=== PATIENT | male | born 1960 | race African-American/Black ===

== ENCOUNTER 2020-03-21 21:05 | Inpatient (IN) ==
[2020-03-21] MEDS ORDERED: HYDROmorphone 2 MG/1 ML VIAL IV ONE (23:18)
[2020-03-22] MEDS ORDERED: HYDROmorphone 2 MG/1 ML VIAL IV PRN (00:55)
[2020-03-22] MEDS ORDERED: LORazepam 2 MG/1 ML VIAL IV PRN ×2 (00:55→00:56)
[2020-03-22] MEDS ORDERED: ONDANSETRON 4 MG/2 ML VIAL IV PRN ×2 (00:56→15:00)
[2020-03-22] MEDS ORDERED: DOCUSATE SODIUM 100 MG CAPSULE PO PRN (00:56)
[2020-03-22] MEDS ORDERED: DEXTROSE 50% 25 GM/50 ML VIAL IV PRN (00:56)
[2020-03-22] MEDS ORDERED: ACETAMINOPHEN 325 MG TABLET PO PRN ×2 (00:56→15:00)
[2020-03-22] MEDS ORDERED: hydrALAZINE 20 MG/1 ML VIAL IV PRN (00:56)
[2020-03-22] MEDS ORDERED: GLUCAGON 1 MG VIAL IM PRN (00:56)
[2020-03-22] MEDS ORDERED: PROMETHAZINE INJ 25 MG in SODIUM CHLORIDE 0.9% 50 ML IV PRN (01:13)
[2020-03-22] MEDS ORDERED: THIAMINE INJ 100 MG, FOLIC ACID INJ 1 MG, MULTIVITAMIN INJ 10 ML in SODIUM CHLORIDE 0.9... IV ONE (01:31)
[2020-03-22] MEDS ORDERED: MAGNESIUM SULF RIDER 4 GM in PREMIX 1 EACH IV PRN (01:32)
[2020-03-22] MEDS ORDERED: POTASSIUM CHLORIDE RIDER 10 MEQ in PREMIX 1 EACH IV PRN (01:32)
[2020-03-22] MEDS ORDERED: MAGNESIUM SULF RIDER 2 GM in PREMIX 1 EACH IV PRN (01:32)
[2020-03-22] MEDS ORDERED: NICOTINE 21 MG/24 HR PATCH TRANSDERM PRN (01:32)
[2020-03-22] MEDS: ENOXAPARIN 40 MG/0.4 ML SYRINGE SUBCUT SCH (01:54)
[2020-03-22 06:13] LABS: Basophils % 0.2 % (0.0-0.8); Hematocrit 43.5 VOL% (42.0-52.0); Hemoglobin 14.9 GM/DL (14.0-18.0); Immature Granulocytes % 0.3 %; Immature Granulocytes Absolute 0.03 #; Lymphocytes # 0.7 10*3/uL (1.4-4.0); Lymphocytes % 8.1 % (21.2-54.2); Mean Corpuscular HGB Conc 34.3 GM/DL (32-36); Mean Corpuscular Volume 91.2 FL (87-102); Mean Platelet Volume 9.1 FL (9.6-12.0); Monocytes % 8.9 % (1.7-12.7); Neutrophils % 82.5 % (38.7-73.9); Platelet Count 168 T/CUMM (130-400); Red Blood Count 4.77 MC/CUMM (3.8-5.5); Red Cell Distribution Width 13.8 % (9.3-17.3); White Blood Count 9.2 T/CUMM (4-12)
[2020-03-22 06:54] LABS: Albumin 3.1 G/DL (3.4-5.0); Bilirubin,Total 2.3 MG/DL (0.2-1.0); Calcium 8.1 MG/DL (8.5-10.1); Osmolality,Calculated 270.2 MOS/KG (273-304); Potassium 3.6 MMOL/L (3.5-5.1); Risk Ratio 5.22; Thyroid Stimulating Hormone 1.01 uIU/ml (0.358-3.74); Total Protein 7.6 G/DL (6.4-8.3)
[2020-03-22] MEDS: CETIRIZINE 10 MG TABLET PO SCH (08:43)
[2020-03-22] MEDS: GABAPENTIN 300 MG CAPSULE PO SCH ×2 (08:43→20:12)
[2020-03-22] MEDS: CHOLECALCIFEROL 1,000 UNIT TABLET PO SCH (08:43)
[2020-03-22] MEDS: ASCORBIC ACID 500 MG TABLET PO SCH ×2 (08:43→20:12)
[2020-03-22] MEDS: atenoloL 50 MG TABLET PO SCH (08:43)
[2020-03-22] MEDS: PANTOPRAZOLE 40 MG VIAL IV SCH (08:44)
[2020-03-22] MEDS: ZINC GLUCONATE 50 MG TABLET PO SCH (08:46)
[2020-03-22] MEDS: SODIUM CHLORIDE 0.9% 1,000 ML IV SCH ×2 (09:30→20:12)
[2020-03-22] MEDS ORDERED: methylPREDNISolone SOD SUC 125 MG/2 ML VIAL IV PRN (15:00)
[2020-03-22] MEDS ORDERED: SODIUM CHLORIDE 0.9% 1,000 ML IV SCH (15:00)
[2020-03-22] MEDS ORDERED: SODIUM CHLORIDE 0.9% 200 ML IV SCH (15:00)
[2020-03-22] MEDS ORDERED: MECLIZINE 25 MG TABLET PO PRN (15:00)
[2020-03-22] MEDS ORDERED: DEXAMETHASONE 4 MG TABLET PO ONE (15:00)
[2020-03-22] MEDS ORDERED: diphenhydrAMINE 50 MG/1 ML VIAL IV PRN ×2 (15:00)
[2020-03-22] MEDS ORDERED: [UNRECOGNIZED DRUG - OTHER] IV ONE (16:00)
[2020-03-23] MEDS: ENOXAPARIN 40 MG/0.4 ML SYRINGE SUBCUT SCH (00:40)
[2020-03-23 05:05] LABS: Basophils % 0.1 % (0.0-0.8); Hematocrit 34.3 VOL% (42.0-52.0); Hemoglobin 11.5 GM/DL (14.0-18.0); Immature Granulocytes % 0.4 %; Immature Granulocytes Absolute 0.04 #; Lymphocytes # 0.7 10*3/uL (1.4-4.0); Lymphocytes % 6.6 % (21.2-54.2); Mean Corpuscular HGB Conc 33.5 GM/DL (32-36); Mean Corpuscular Volume 92.7 FL (87-102); Mean Platelet Volume 9.6 FL (9.6-12.0); Monocytes % 6.3 % (1.7-12.7); Neutrophils % 86.6 % (38.7-73.9); Platelet Count 152 T/CUMM (130-400); Red Cell Distribution Width 13.5 % (9.3-17.3); White Blood Count 10.9 T/CUMM (4-12)
[2020-03-23 05:32] LABS: Albumin 2.6 G/DL (3.4-5.0); Bilirubin,Total 1.1 MG/DL (0.2-1.0); Calcium 7.4 MG/DL (8.5-10.1); Osmolality,Calculated 259.9 MOS/KG (273-304); Potassium 3.4 MMOL/L (3.5-5.1)
[2020-03-23] MEDS ORDERED: POTASSIUM CHLORIDE 20 MEQ TABLET PO ONE (07:45)
[2020-03-23 07:50] LABS: Band Neutrophils 3 % (0-10); Lymphocytes 5 % (20-55); Segmented Neutrophils 92 % (50-85); Total Cells Counted 100
[2020-03-23 07:51] LABS: Stomatocytes Few; Target Cells Few
[2020-03-23 07:52] LABS: Smudge Cells Few
[2020-03-23 07:53] LABS: Anisocytosis Slight; Macrocytosis Slight; Microcytosis Slight; Platelet Estimate Decreased
[2020-03-23] MEDS ORDERED: FOLIC ACID 1 MG TABLET PO SCH (09:00)
[2020-03-23] MEDS ORDERED: MULTIVITAMIN (CENTRUM) TABLET PO SCH (09:00)
[2020-03-23] MEDS ORDERED: THIAMINE 100 MG TABLET PO SCH (09:00)
[2020-03-23 11:26] VITALS: BP 144/91
[2020-03-23] MEDS: CETIRIZINE 10 MG TABLET PO SCH (11:53)
[2020-03-23] MEDS: CHOLECALCIFEROL 1,000 UNIT TABLET PO SCH (11:53)
[2020-03-23] MEDS: ZINC GLUCONATE 50 MG TABLET PO SCH (11:54)
[2020-03-23] MEDS: atenoloL 50 MG TABLET PO SCH (11:54)
[2020-03-23] MEDS: ASCORBIC ACID 500 MG TABLET PO SCH (11:54)
[2020-03-23] MEDS: GABAPENTIN 300 MG CAPSULE PO SCH (11:55)
[2020-03-23] MEDS: PANTOPRAZOLE 40 MG VIAL IV SCH (12:26)
== END 2020-03-23 17:23 | disposition home or self-care (01) | DRG 438 ==
LOC: N.2E 21:13 → SUATTDRO 22:55
PROVIDERS: ADMIT Internal Medicine; ATTEND Internal Medicine

== ENCOUNTER 2020-05-23 14:33 | Inpatient (IN) ==
[2020-05-23] MEDS ORDERED: MORPHINE 4 MG/1 ML VIAL IV PRN (21:07)
[2020-05-23] MEDS ORDERED: PROMETHAZINE 25 MG/1 ML VIAL IM PRN (21:07)
[2020-05-23] MEDS ORDERED: guaiFENesin/DM ER 600-30 MG TABLET PO PRN (21:07)
[2020-05-23] MEDS ORDERED: ACETAMINOPHEN 325 MG TABLET PO PRN (21:07)
[2020-05-23] MEDS ORDERED: DEXTROSE 50% 25 GM/50 ML VIAL IV PRN (21:07)
[2020-05-23] MEDS ORDERED: NICOTINE 21 MG/24 HR PATCH TRANSDERM PRN (21:07)
[2020-05-23] MEDS ORDERED: ZALEPLON 5 MG CAPSULE PO PRN (21:07)
[2020-05-23] MEDS ORDERED: ONDANSETRON 4 MG/2 ML VIAL IV PRN (21:07)
[2020-05-23] MEDS ORDERED: hydrALAZINE 20 MG/1 ML VIAL IV PRN (21:07)
[2020-05-23] MEDS ORDERED: diphenhydrAMINE CAP 25 MG CAPSULE PO PRN (21:07)
[2020-05-23] MEDS ORDERED: GLUCAGON 1 MG VIAL IM PRN (21:07)
[2020-05-23] MEDS ORDERED: HYDROmorphone 2 MG/1 ML VIAL IV PRN (21:09)
[2020-05-23] MEDS: SODIUM CHLOR 0.45% KCL 20 MEQ 20 MEQ/1,000 ML BAG IV SCH (22:03)
[2020-05-24 05:37] LABS: Basophils % 0.3 % (0.0-0.8); Eosinophils % 0.1 % (0.00-10.9); Hematocrit 42.5 VOL% (42.0-52.0); Hemoglobin 14.2 GM/DL (14.0-18.0); Immature Granulocytes % 0.3 %; Immature Granulocytes Absolute 0.02 #; Lymphocytes % 13.5 % (21.2-54.2); Mean Corpuscular HGB Conc 33.4 GM/DL (32-36); Mean Corpuscular Volume 90.4 FL (87-102); Mean Platelet Volume 9.7 FL (9.6-12.0); Neutrophils % 79.8 % (38.7-73.9); Platelet Count 150 T/CUMM (130-400); Red Cell Distribution Width 13.5 % (9.3-17.3); White Blood Count 7.1 T/CUMM (4-12)
[2020-05-24 06:14] LABS: Potassium 3.3 MMOL/L (3.5-5.1); Risk Ratio 6.07; VLDL CHOLESTEROL 82.6 MG/DL
[2020-05-24] MEDS: SODIUM CHLOR 0.45% KCL 20 MEQ 20 MEQ/1,000 ML BAG IV SCH ×2 (07:39→17:50)
[2020-05-24] MEDS: atenoloL 50 MG TABLET PO SCH (08:32)
[2020-05-24] MEDS: CETIRIZINE 10 MG TABLET PO SCH (08:32)
[2020-05-24] MEDS: MULTIVITAMIN (CENTRUM) TABLET PO SCH (08:32)
[2020-05-24] MEDS: ASCORBIC ACID 500 MG TABLET PO SCH ×2 (08:32→20:29)
[2020-05-24] MEDS: CHOLECALCIFEROL 1,000 UNIT TABLET PO SCH (08:32)
[2020-05-24] MEDS: THIAMINE 100 MG TABLET PO SCH (08:32)
[2020-05-24] MEDS: FOLIC ACID 1 MG TABLET PO SCH (08:32)
[2020-05-24] MEDS: CHLORTHALIDONE 25 MG TABLET PO SCH (08:32)
[2020-05-24] MEDS: ENOXAPARIN 40 MG/0.4 ML SYRINGE SUBCUT SCH (08:33)
[2020-05-24] MEDS ORDERED: MAGNESIUM SULF RIDER 2 GM in PREMIX 1 EACH IV PRN (08:51)
[2020-05-24] MEDS ORDERED: MAGNESIUM SULF RIDER 4 GM in PREMIX 1 EACH IV PRN (08:51)
[2020-05-24] MEDS ORDERED: POTASSIUM CHLORIDE RIDER 10 MEQ in PREMIX 1 EACH IV PRN (08:52)
[2020-05-24] MEDS: NICOTINE 21 MG/24 HR PATCH TRANSDERM SCH (16:37)
[2020-05-25] MEDS: SODIUM CHLOR 0.45% KCL 20 MEQ 20 MEQ/1,000 ML BAG IV SCH ×2 (03:11→14:20)
[2020-05-25 05:52] LABS: Basophils % 0.2 % (0.0-0.8); Eosinophils % 0.4 % (0.00-10.9); Hematocrit 37.1 VOL% (42.0-52.0); Immature Granulocytes % 0.3 %; Immature Granulocytes Absolute 0.03 #; Lymphocytes # 1.6 10*3/uL (1.4-4.0); Lymphocytes % 17.2 % (21.2-54.2); Mean Corpuscular HGB Conc 32.3 GM/DL (32-36); Mean Corpuscular Volume 93.2 FL (87-102); Mean Platelet Volume 9.5 FL (9.6-12.0); Monocytes % 10.9 % (1.7-12.7); NRBC # 0.02 10*3/uL; Platelet Count 143 T/CUMM (130-400); Red Blood Count 3.98 MC/CUMM (3.8-5.5); Red Cell Distribution Width 13.3 % (9.3-17.3); White Blood Count 9.2 T/CUMM (4-12)
[2020-05-25 06:13] LABS: Albumin 2.5 G/DL (3.4-5.0); Bilirubin,Total 1.9 MG/DL (0.2-1.0); Calcium 7.9 MG/DL (8.5-10.1); Osmolality,Calculated 262.4 MOS/KG (273-304); Potassium 3.6 MMOL/L (3.5-5.1); Total Protein 6.6 G/DL (6.4-8.2)
[2020-05-25] MEDS: FOLIC ACID 1 MG TABLET PO SCH (08:09)
[2020-05-25] MEDS: ASCORBIC ACID 500 MG TABLET PO SCH (08:09)
[2020-05-25] MEDS: NICOTINE 21 MG/24 HR PATCH TRANSDERM SCH (08:09)
[2020-05-25] MEDS: atenoloL 50 MG TABLET PO SCH (08:10)
[2020-05-25] MEDS: THIAMINE 100 MG TABLET PO SCH (08:10)
[2020-05-25] MEDS: CHOLECALCIFEROL 1,000 UNIT TABLET PO SCH (08:10)
[2020-05-25] MEDS: ENOXAPARIN 40 MG/0.4 ML SYRINGE SUBCUT SCH (08:10)
[2020-05-25] MEDS: CHLORTHALIDONE 25 MG TABLET PO SCH (08:10)
[2020-05-25] MEDS: CETIRIZINE 10 MG TABLET PO SCH (08:10)
[2020-05-25] MEDS: MULTIVITAMIN (CENTRUM) TABLET PO SCH (08:10)
[2020-05-25 11:50] VITALS: BP 113/62
== END 2020-05-25 15:48 | disposition home or self-care (01) | DRG 440 ==
LOC: SUATTDRO 20:02 → N.3E 20:02
PROVIDERS: ADMIT Internal Medicine; ATTEND Hospitalist